=== PATIENT | male | born 1960 | race Caucasian/White ===

== ENCOUNTER 2021-12-29 08:19 | Outpatient (CLI) | payer OTHER | END 2021-12-29 08:20 | disposition home or self-care (01) | LOC: LABHHL 08:19 | PROVIDERS: ATTEND Otolaryngology Otology & Neurotology | DX: J34.3 Hypertrophy of nasal turbinates (principal); J32.2 Chronic ethmoidal sinusitis; J33.9 Nasal polyp, unspecified | CPT/HCPCS: 88305; 88311 ==